=== PATIENT | female | born 2000 | race Caucasian/White ===

== ENCOUNTER 2020-06-19 15:16 | Emergency (ER) | payer OTHER ==
[~2020-06-19] VITALS: Ht 170.2 cm; Wt 122.7 kg
--- NOTE | 2020-06-19 16:41 | REP ---
INDICATION: trauma. COMPARISON: None. TECHNIQUE: FOUR VIEWS FINDINGS: MEDIOLATERAL COMPARTMENTS SHOW NO JOINT SPACE NARROWING. NO DEGENERATIVE SPURS, LOOSE BODIES, OSTEOCHONDRAL DEFECT OR FOCAL BONE LESION. THERE IS NO VISIBLE FRACTURE. NO OBVIOUS PATELLAR SUBLUXATION OR SUPRAPATELLAR EFFUSION. NO FOCAL LESION ABOUT THE KNEE. I SEE NO AVULSION OR ABNORMAL SOFT TISSUE CALCIFICATION. IMPRESSION: NEGATIVE FOUR VIEW KNEE SERIES. <Electronically signed by Sebastian Grossman > 06/19/20 [id number]
[2020-06-19] MEDS ORDERED: ACETAMINOPHEN TAB 650MG DOSE (2X325MG) PO ONE (17:30)
[2020-06-19] MEDS ORDERED: ARMO1TAB PO (17:42)
[2020-06-19] MEDS ORDERED: ZOLO100T PO (17:43)
[2020-06-19] MEDS ORDERED: INSULANT SC (17:43)
[2020-06-19] MEDS ORDERED: SERO1TAB3 PO (17:43)
[2020-06-19] MEDS ORDERED: METF-877 PO (17:43)
[2020-06-19 18:10] VITALS: BP 130/68
== END 2020-06-19 18:39 | disposition home or self-care (01) ==
LOC: M ED 15:16 → EDBD 15:16 → M ED 18:39
DX: S80.02XA Contusion of left knee, initial encounter (principal); T14.8XXA Other injury of unspecified body region, initial encounter; V44.5XXA Car driver injured in collision with heavy transport vehicle or bus in traffic accident, initial encounter; Y92.9 Unspecified place or not applicable; Y93.9 Activity, unspecified; Y99.9 Unspecified external cause status; Z88.0 Allergy status to penicillin; Z88.8 Allergy status to other drugs, medicaments and biological substances